=== PATIENT | male | born 1955 | race Caucasian/White ===

== ENCOUNTER 2016-10-11 09:36 | Observation (INO) | payer OTHER ==
[2016-10-11] MEDS ORDERED: MORPHINE SULFATE 4 MG/ML SYRINGE IVP STA ×2 (09:56→13:50)
[2016-10-11] MEDS ORDERED: RX INFO: IV CONTRAST WAS GIVEN 1 EACH MISC MISCELLANE PRN (09:56)
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
[2016-10-11 10:26] LABS: Basophils % (A) 0 %; Eosinophils # (A) 0.1 k/uL (0-0.7); Eosinophils % (A) 2 %; HCT 46.4 % (39.0-53.0); HGB 15.6 gm/dL (13.0-17.5); Luc # (Auto) 0.11; Luc % (Auto) 2; Lymphocytes # (A) 1.7 k/uL (1.0-4.8); Lymphocytes % (A) 29 %; MCH 30.8 pg (25.0-35.0); MCHC 33.5 g/dL (31.0-37.0); MCV 91.9 fL (80.0-100.0); Monocytes # (A) 0.3 k/uL (0-1.0); Monocytes % (A) 4 %; Neutrophils # (A) 3.8 k/uL (1.3-7.7); Neutrophils % (A) 63 %; RBC 5.05 m/uL (4.30-5.90); RDW 13.8 % (11.5-15.5); WBC (Perox) 5.77
[2016-10-11 10:41] LABS: ALT 63 U/L (21-72); AST 34 U/L (17-59); Alkaline Phosphatase 62 U/L (38-126); Anion Gap 13 mmol/L; Blood Urea Nitrogen 13 mg/dL (9-20); Calcium 9.4 mg/dL (8.4-10.2); Carbon Dioxide 24 mmol/L (22-30); Chloride 102 mmol/L (98-107); Glucose 135 mg/dL (74-99); Non-African American GFR(MDRD) >60 (>60 ml/min/1.73 sqM); Sodium 139 mmol/L (137-145); Total Bilirubin 0.8 mg/dL (0.2-1.3); Total Protein 7.2 g/dL (6.3-8.2)
[2016-10-11 10:48] LABS: Creatine Kinase 75 U/L (55-170)
[2016-10-11 10:54] LABS: Potassium 4.4 mmol/L (3.5-5.1)
--- NOTE | 2016-10-11 10:55 | CT ---
EXAMINATION TYPE: CT angio thoracic/abd aorta DATE OF EXAM: 10/11/2016 10:45 AM COMPARISON: NONE HISTORY: SOB, chest pain CT DLP: 1806.8 mGycm CONTRAST: CTA thoracic and abdominal aorta with 3-D reconstruction is performed and without and with IV Contras t, patient injected with 100 mL of Omnipaque 350. Contrast CTA of the thoracic and abdominal aorta was performed from the lung apex through the base of the pelvis. 3-D reconstruction imaging obtained at a separate workstation. CT Chest: THORACIC AORTA: There is no evidence for aneurysm. No dissection or mediastinal hematoma. Mild ath eromatous changes are seen. LUNGS: The lungs are clear and free of infiltrate or atelectasis. No pulmonary nodule or mass is det ected. No pleural effusion or CT evidence of interstitial lung disease. MEDIASTINUM: The heart is not enlarged. No evidence for mediastinal mass or adenopathy. HILAR STRUCTURES: No evidence for mass. No hilar adenopathy is appreciated. OTHER: No significant abnormality. CONTRAST CT ABDOMEN AND PELVIS ABDOMENAL AORTA: No evidence for abdominal aortic aneurysm. No dissection. Iliac vessels are symmet mira and patent. LIVER/GB-small hepatic cyst. PANCREAS- No significant abnormality is seen. SPLEEN- No significant abnormality is seen. ADRENALS- No significant abnormality is seen. KIDNEYS/BLADDER- No significant abnormality is seen. BOWEL- No Significant abnormality GENITAL ORGANS: No gross abnormality seen. LYMPH NODES- No greater than 1cm abdominal or pelvic lymph nodes areappreciated. OSSEOUS STRUCTURES- No significant abnormality is seen. OTHER- No significant abnormality is seen. IMPRESSION- No evidence for aneurysm or dissection. No acute process.
[2016-10-11 11:01] LABS: Creatine Kinase MB 0.5 ng/mL (0.0-2.4); Troponin I <0.012 ng/mL (0.000-0.034)
[2016-10-11] MEDS ORDERED: HEPARIN SODIUM,PORCINE 5,000 UNIT/ML 1 ML VIAL IV ONE (11:05)
[2016-10-11] MEDS ORDERED: ASPIRIN 81 MG CHEW PO STA (11:05)
[2016-10-11] MEDS ORDERED: NITROGLYCERIN SL TABS 0.4 MG TAB SUBLINGUAL PRN (11:05)
[2016-10-11] MEDS ORDERED: HEPARIN SODIUM,PORCINE 5,000 UNIT/ML 1 ML VIAL IV PRN (11:05)
[2016-10-11] MEDS ORDERED: HEPARIN SODIUM,PORCINE/D5W PMX 25,000 UNIT in DEXTROSE/WATER 1 500ML.BAG IV SCH (11:15)
[2016-10-11 11:35] LABS: Partial Thromboplastin Time 24.6 sec (22.0-30.0)
[2016-10-11 16:20] LABS: Creatine Kinase 63 U/L (55-170)
[2016-10-11 16:30] LABS: Creatine Kinase MB 0.4 ng/mL (0.0-2.4); Troponin I <0.012 ng/mL (0.000-0.034)
[2016-10-11] MEDS: MORPHINE SULFATE 4 MG/ML SYRINGE IVP PRN ×2 (18:23→22:31)
--- NOTE | 2016-10-11 20:54 | CONS ---
DATE OF CONSULTATION: This is a 60-year-old male patient who came into the hospital with left scapular pain radiating down the left arm. He bent over and then stood up and had sudden very severe pain that started in the left scapular area and radiated down the left arm, so he was quite concerned and came to the hospital. He still is having lingering discomfort; it is better after giving a treatment of opiates. His cardiac enzymes so far have been normal. There is mild tenderness on the medial aspect of the scapula. His medications only include Motrin, and previously he was taking Ultram. ALLERGIES: HONEYBEE VENOM. PAST MEDICAL HISTORY: He denies any history of diabetes or hypertension or dyslipidemia. SOCIAL HISTORY: He stopped smoking 10 to 15 years back. No alcohol use for the last 30 years. REVIEW OF SYSTEMS: No fever, chills or rigors. No cough or expectoration. No nausea, vomiting or diarrhea. No hematuria or dysuria. No strokes or seizures. No skin lesions. No musculoskeletal complaints. On examination, his blood pressure is 134/91 mmHg. His temperature is 98.1 degrees Fahrenheit, pulse rate in the 80s. Head and neck examination is normal. Heart sounds are normal. Lungs are clear on auscultation. EXTREMITIES: Warm. No edema. He has some tenderness over the medial aspect of the scapula. Labs are reviewed. His hemoglobin is normal. His electrolytes are normal. Cardiac enzymes are normal. IMPRESSION: 1. Atypical upper back discomfort radiating from the shoulder with 2 cardiac enzymes that are normal so far. 2. No history of hypertension, dyslipidemia, diabetes or history of current smoking. SUGGEST: If his 3 set of cardiac enzymes are normal, we will stop his heparin and he may be seen as an outpatient for further workup.
[2016-10-11 22:44] LABS: Creatine Kinase 56 U/L (55-170)
[2016-10-11 22:58] LABS: Creatine Kinase MB 0.6 ng/mL (0.0-2.4); Troponin I <0.012 ng/mL (0.000-0.034)
[2016-10-11 23:54] LABS: Creatine Kinase 59 U/L (55-170); Creatine Kinase MB 0.5 ng/mL (0.0-2.4); Troponin I <0.012 ng/mL (0.000-0.034)
[2016-10-12 02:55] LABS: Mean Platelet Volume 6.9
[2016-10-12 03:10] LABS: Cholesterol 156 mg/dL (<200); HDL Cholesterol 53 mg/dL (40-60); Triglycerides 260 mg/dL (<150)
[2016-10-12] MEDS: MORPHINE SULFATE 4 MG/ML SYRINGE IVP PRN ×2 (04:05→08:59)
[2016-10-12 04:15] VITALS: RESP 16
[2016-10-12] MEDS ORDERED: ASPIRIN 325 MG TAB PO SCH (09:00)
[2016-10-12] MEDS ORDERED: ATORVASTATIN 80 MG TAB PO SCH (09:00)
--- NOTE | 2016-10-12 10:24 | PN ---
Mr. Palacios is a 60-year-old male patient who presented with upper back discomfort. His cardiac enzymes are normal. EKG is normal. He has not had an acute myocardial infarction. His triglycerides are 260, total cholesterol 156. He does have central obesity. On examination today, his blood pressure is 161/92 mmHg and has been consistently elevated here. Head and neck examination is normal. Heart sounds are normal. Lungs are clear on auscultation. Extremities are warm, no edema. IMPRESSION: 1. Elevated blood pressure likely hypertension. 2. Elevated triglycerides. SUGGEST: Losartan 50 mg p.o. daily and a low carbohydrate diet and outpatient workup.
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
[2016-10-12 13:55] VITALS: BP 148/87; PULSE 72; TEMP 98.2
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
== END 2016-10-12 15:27 | disposition home or self-care (01) ==
LOC: EC 09:36 → 3OBS 11:06
PROVIDERS: ADMIT Hospitalist; ATTEND Hospitalist
DX: R07.9 Chest pain, unspecified (principal); M54.5 Low back pain; G89.29 Other chronic pain; E66.9 Obesity, unspecified; Z91.030 Bee allergy status; Z87.891 Personal history of nicotine dependence; Z82.49 Family history of ischemic heart disease and other diseases of the circulatory system; Z82.5 Family history of asthma and other chronic lower respiratory diseases; M54.9 Dorsalgia, unspecified; R61 Generalized hyperhidrosis; R06.02 Shortness of breath; R20.2 Paresthesia of skin; Z82.3 Family history of stroke; R03.0 Elevated blood-pressure reading, without diagnosis of hypertension; E78.1 Pure hyperglyceridemia; Z86.19 Personal history of other infectious and parasitic diseases; Z68.34 Body mass index [BMI] 34.0-34.9, adult
CPT/HCPCS: 96376 ×4; 96366 ×7; 96365; 96375; 99291; 36415; 93005; 85379; 83880; 80061; 80053; 82550; 82553; 83690; 83735; 84484; 85025; 85049; 85610; 85730 ×2; 75635; 71275; G0378 ×2; J2270 ×2; J1644 ×3; Q9967

== ENCOUNTER → 2016-12-15 | Outpatient (CLI) | payer OTHER ==
--- NOTE | 2016-12-15 17:02 | CONS ---
DATE OF CONSULTATION: 12/15/2016 This is a 61-year-old gentleman who has been evaluated in the sleep center for possible obstructive sleep apnea/hypopnea syndrome. HISTORY OF PRESENT ILLNESS/SLEEP-WAKE EVALUATION: The patient's usual sleep schedule is from 11 p.m. to 6 a.m. basically 7 days a week. Sometimes he has problems falling asleep. He watches TV sometimes in the bedroom. He snores, according to his . He wakes up from sleep multiple times; more than 5 times ; with up to 2 episodes of nocturia. He has difficulties breathing through his nose during the night. He wakes up with a dry mouth. During the day he has sleepiness, problems with memory. [place] sleepiness scale increased to 11. He takes naps usually after meals. No history of hypnagogic hallucinations, sleep paralysis or cataplexy. PAST MEDICAL HISTORY: 1. Recent episode of stroke. 2. Chest pain. 3. Shortness of breath. Evaluation in the hospital did not find any significant abnormalities related to the heart. 4. Hypertension. 5. Hyperlipidemia. 6. Nasal breathing problems. PAST SURGICAL HISTORY: 1. Back surgery. 2. Surgery for broken mandibula. 3. Surgery for broken left arm. MEDICATIONS: None. SOCIAL HISTORY: Positive for smoking for more than 40 pack/years. Quit about 8 years ago. No alcohol consumption at the present time. REVIEW OF SYSTEMS: No fevers. No double vision. No recent chest pain. No shortness of breath. No abdominal pain. No bleeding episodes. No blood in urine. No seizure episodes. Multiple awakenings from sleep. Nocturia. Sleepiness during the day. FAMILY HISTORY: Hypertension, heart problems, hyperlipidemia, stroke, cancer. PHYSICAL EXAM: The patient is a pleasant 61-year-old gentleman without distress. VITAL SIGNS: Blood pressure 132/80, heart rate 86, respiratory rate 16. Height 5 feet 10-1/2 inches. Weight 245. BMI 34.6. Neck 17 inches in circumference. Temperature 98.8. Oxygen saturation at room air 96%. GENERAL: A pleasant patient without distress. HEENT: PERRLA. EOMI. Evaluation of oropharynx showed tongue protrudes midline. Extremely low position of soft palate. Mallampati IV. Slight restriction of nasal breathing. NECK: Supple. No JVD. Thyroid is not palpable. LUNGS: Clear to percussion and to auscultation. Good air exchange. No wheezing or rhonchi. HEART: S1, S2 regular. No murmurs, gallops or rubs. ABDOMEN: Obese. EXTREMITIES: No clubbing or cyanosis. GAME MANAGER: Awake, alert and oriented x3. Cranial nerves 2 through 7 are intact. There is no fasciculation or atrophy noted. No focal deficits observed. Middle scar on the chest area after back surgery. IMPRESSION: 1. Snoring, multiple awakenings from sleep with nocturia, extremely low position of soft palate, wide neck; obstructive sleep apnea/hypopnea syndrome. 2. Obesity; body mass index 34.6. 3. Some restriction of nasal breathing. 4. History of smoking for more than 40 pack/years in the past. 5. History of hypertension. 6. Hyperlipidemia. 7. Episode of strong chest pain a few months ago. Patient was evaluated in the hospital for several days. No cardiac problem at that time was documented. PLAN: 1. Polysomnography for evaluation of patients breathing during sleep. 2. CPAP/BiPAP titration if sleep study confirms obstructive sleep apnea/ hypopnea syndrome. 3. Preferable position during sleep on the side. 4. No driving if feeling any sleepiness. Patient is aware of civil and criminal liability for unsafe driving. 5. I will see this patient for follow-up visit to explain results of the testing and follow-up plan. Thank you very much for referring this patient for consultation. Sincerely, Robin Andrews. , PhD, FAASM. Diplomat of [place] [employer], Sleep Medicine Board by [place] [employer] [place] [employer] Training Program Coordinator of [facility]
== END | disposition home or self-care (01) ==
LOC: SLEEP 13:09
PROVIDERS: ATTEND Internal Medicine
DX: G47.33 Obstructive sleep apnea (adult) (pediatric) (principal); E66.9 Obesity, unspecified; I10 Essential (primary) hypertension; E78.5 Hyperlipidemia, unspecified; Z87.891 Personal history of nicotine dependence; Z68.34 Body mass index [BMI] 34.0-34.9, adult
CPT/HCPCS: 99211

== ENCOUNTER → 2017-03-30 | Outpatient (CLI) | payer OTHER ==
--- NOTE | 2017-03-30 16:59 | PN ---
PROGRESS NOTE DATE OF SERVICE: 03/30/2017 61-year-old gentleman has been followed [facility] to discuss results of the sleep study. I discussed results of sleep study with patient in details. No significant respiratory abnormalities have been documented during the sleep test. Apnea-hypopnea index was only 0.6. Only 3 hypopneas documented for the whole night. Lowest oxygen level 91.7%, which is totally normal. At the same time, the EMG showed 48.4 periodic limb movements per hour with 4.1 microarousals per hour and during 2 periods of sleep the patient had very significant amount of leg movements. According to patient, he often wakes up from sleep at home while hearing very minimal noise. MEDICATIONS: None. PHYSICAL EXAM: GENERAL Patient in no distress. VITAL SIGNS Height 5 feet 10 inches, weight 243, BMI 34.8, temperature 97.7, HR 82, RR 16, oxygen saturation room air 98%, BP 145/87. HEENT PERRLA, EOMI, evaluation of oropharynx showed moderately low position of soft palate. NECK Supple, no JVD. Thyroid is not palpable. LUNGS Clear to percussion and to auscultation. Good air exchange. No wheezing or rhonchi. HEART S1, S2 regular. No murmurs, gallops, or rubs. ABDOMEN Slightly obese. Soft and nontender. Bowel sounds are present. No organomegaly appreciated. EXTREMITIES No clubbing or cyanosis. [employer] Awake, alert, and oriented X3. Cranial nerves 2 to 7 intact. There is no fasciculation or atrophy. noted. No focal deficits observed. IMPRESSION: 1. No significant respiratory abnormalities during the sleep. Normal oxygen saturation during sleep. 2. Moderate close to severe periodic limb movements have been documented, in 2 periods of sleep time extremely severe. 3. Obesity. 4. History of hypertension. 5. Hyperlipidemia. 6. Tinnitus. PLAN: 1. Please check iron profile including ferritin level. A low level of iron may increase risk for periodic limb movements. 2. Start the patient on the smallest dose of Mirapex 0.125 mg 1 or 2 tablets at bedtime for periodic limb movements. 3. Ear plugs for the night for the sleep time. 4. Sleep hygiene with regular time in bed for at least 8 hours. 5. No driving if feeling any sleepiness. Thank you very much for allowing me to participate in management of your patient. Sincerely, Robin Andrews MD, PhD, FAASM Diplomat of [employer] [employer] [facility] [place] MMLEONARDO / MADDIE: [phone] /
== END | disposition home or self-care (01) ==
LOC: SLEEP 15:45
PROVIDERS: ATTEND Internal Medicine
DX: G47.61 Periodic limb movement disorder (principal); E78.5 Hyperlipidemia, unspecified; H93.19 Tinnitus, unspecified ear; E66.9 Obesity, unspecified; Z68.34 Body mass index [BMI] 34.0-34.9, adult; Z86.79 Personal history of other diseases of the circulatory system

== ENCOUNTER 2018-08-24 12:06 | Emergency (ER) | payer OTHER ==
[2018-08-24] MEDS ORDERED: SODIUM CHLORIDE 0.9% 1,000 ML IV STA (12:35)
[2018-08-24 13:00] LABS: Basophils % (A) 0 %; Eosinophils # (A) 0.2 k/uL (0-0.7); Eosinophils % (A) 3 %; HCT 45.6 % (39.0-53.0); HGB 15.2 gm/dL (13.0-17.5); Lymphocytes # (A) 2.2 k/uL (1.0-4.8); Lymphocytes % (A) 28 %; MCH 29.8 pg (25.0-35.0); MCHC 33.4 g/dL (31.0-37.0); MCV 89.2 fL (80.0-100.0); Mean Platelet Volume 6.6; Monocytes # (A) 0.4 k/uL (0-1.0); Monocytes % (A) 5 %; Neutrophils # (A) 4.8 k/uL (1.3-7.7); Neutrophils % (A) 62 %; Platelet Count 223 k/uL (150-450); RBC 5.12 m/uL (4.30-5.90); RDW 13.1 % (11.5-15.5); WBC 7.8 k/uL (3.8-10.6)
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
[2018-08-24 13:09] LABS: ALT 57 U/L (21-72); AST 32 U/L (17-59); Albumin 4.6 g/dL (3.5-5.0); Alkaline Phosphatase 59 U/L (38-126); Anion Gap 10 mmol/L; Blood Urea Nitrogen 10 mg/dL (9-20); Calcium 9.5 mg/dL (8.4-10.2); Carbon Dioxide 26 mmol/L (22-30); Chloride 104 mmol/L (98-107); Glucose 88 mg/dL (74-99); Lipase 111 U/L (23-300); Magnesium 2.3 mg/dL (1.6-2.3); Potassium 4.8 mmol/L (3.5-5.1); Sodium 140 mmol/L (137-145); Total Bilirubin 0.8 mg/dL (0.2-1.3); Total Protein 7.3 g/dL (6.3-8.2)
[2018-08-24 13:10] LABS: INR 0.9 (<1.2); Partial Thromboplastin Time 24.5 sec (22.0-30.0); Prothrombin Time 9.7 sec (9.0-12.0)
--- NOTE | 2018-08-24 14:22 | CT ---
EXAMINATION TYPE: CT angio chest DATE OF EXAM: 08/24/2018 COMPARISON: CTA aorta October 11, 2016. HISTORY: Back pain, arm numbness CT DLP: 475.6 mGycm. Automated Exposure Control for Dose Reduction was Utilized. CONTRAST: CTA scan of the thorax is performed without and with IV Contrast, patient injected with 100 ml mL of Isovue 370, pulmonary embolism protocol. MIP Images are created on CT scanner and reviewed. FINDINGS: LUNGS: Some dependent atelectasis right lower lobe is present. Mild emphysematous change in the upper lungs is seen. No suspicious focal consolidation or infiltrate. No suspicious pulmonary masses. No p leural effusion or pneumothorax. Tracheobronchial tree is patent. MEDIASTINUM: There is suboptimal bolus with thecal contrast the right and left heart systems. There is no large central pulmonary embolism. There is however linear right lower lobe segmental thrombus a xial image 80 with subsegmental extension . There are no greater than 1 cm hilar or mediastinal lymph nodes. No cardiomegaly or pericardial effusion is seen. Coronary artery calcifications are redemon strated which is noted marked underlying coronary artery disease. Other: Slight low dense thickening to left adrenal gland favors benign hyperplasia. Fairly moderate m ultilevel anterior and lateral spurring in thoracic spine is redemonstrated. IMPRESSION: New small nonocclusive linear segmental pulmonary embolism right lower lobe with subsegm ental extension. Mild emphysematous change redemonstrated without acute pulmonary process. Results of pulmonary embolism communicated to ordering ER physician via telephone at time of dictatio n
[2018-08-24 14:45] VITALS: RESP 20
[2018-08-24] MEDS ORDERED: MORPHINE SULFATE 4 MG/ML SYRINGE IVP STA (14:46)
[2018-08-24] MEDS ORDERED: APIXABAN 5 MG TAB PO STA (14:46)
--- NOTE | 2018-08-24 15:56 | US ---
EXAMINATION TYPE: US venous doppler duplex LE DATE OF EXAM: 08/24/2018 2:47 PM COMPARISON: NONE CLINICAL HISTORY: Pain. known PE. SIDE PERFORMED: Bilateral TECHNIQUE: The lower extremity deep venous system is examined utilizing real time linear array sonog morales with graded compression, doppler sonography and color-flow sonography. VESSELS IMAGED: External Iliac Vein (EIV) Common Femoral Vein Deep Femoral Vein Greater Saphenous Vein * Femoral Vein Popliteal Vein Small Saphenous Vein * Proximal Calf Veins (* superficial vessels) Grayscale, color doppler, spectral doppler imaging performed of the deep veins of the lower extremiti es. There is normal flow, compressibility, vascular waveforms. Right Leg: Negative for DVT Left Leg: Negative for DVT IMPRESSION: No sonographic evidence of deep venous thrombosis within the bilateral lower extremities .
[2018-08-24 16:36] VITALS: BP 153/86; PULSE 76; TEMP 98
== END 2018-08-24 16:37 | disposition home or self-care (01) ==
LOC: EC 12:06
DX: I26.99 Other pulmonary embolism without acute cor pulmonale (principal); M54.9 Dorsalgia, unspecified; R20.0 Anesthesia of skin; Z87.891 Personal history of nicotine dependence; Z79.899 Other long term (current) drug therapy; Z91.030 Bee allergy status
CPT/HCPCS: 36415; 93005; 83880; 80053; 83690; 83735; 84484; 85025; 85610; 85730; 93970; 71275; 99284; 96374; 96361 ×2; J2270; Q9967

== ENCOUNTER → 2018-09-10 | Outpatient (CLI) | payer OTHER ==
--- NOTE | 2018-09-10 18:09 | US ---
EXAMINATION TYPE: US soft tissue DATE OF EXAM: 09/10/2018 COMPARISON: NONE CLINICAL HISTORY: 62-year-old male R59.0 cervical lymphadenopathy. TECHNIQUE: Targeted ultrasound along the lateral left neck at the palpable site. FINDINGS: Supervisor [employer] notes:Patient has superficial lump in left lateral neck, he states it has been there for about 6 months and is not painful or sensitive. At the patient's lateral left neck palpable site is an echogenic, ovoid and circumscribed mass locate d in the subcutaneous adipose layer measuring 1.3 x 0.6 x 1.4 cm. There is no associated vascularity. IMPRESSION: Ovoid and circumscribed echogenic lesion centered in the subcutaneous adipose layer measuring 1.4 x 1 .3 cm at the palpable site along the lateral left neck. A lipoma is suspected. If there is growth or the area is symptomatic, surgical excision could be considered.
== END ==
LOC: RADUSWWP 13:16
PROVIDERS: ATTEND Family Medicine
DX: L98.8 Other specified disorders of the skin and subcutaneous tissue (principal)
CPT/HCPCS: 76536

== ENCOUNTER → 2018-09-24 | Outpatient (CLI) | payer OTHER ==
--- NOTE | 2018-09-24 09:12 | CT ---
EXAMINATION TYPE: CT sinus wo con DATE OF EXAM: 09/24/2018 COMPARISON: NONE HISTORY: Acute sinusitis CT DLP: 622 mGycm. Automated Exposure Control for Dose Reduction was Utilized. TECHNIQUE: CT scan of the sinuses is performed without contrast, axial images are obtained, coronal r eformatted images are also reviewed. FINDINGS: Large mucosal retention cyst within the anterior left maxillary sinus at its inferior rigo n measures up to 2.3 cm. Mucosal retention cyst within the inferior right maxillary sinus measure 1.4 and 1.3 cm. Small amount of mucosal thickening is seen within the ethmoid sinuses. There is mucosal thickening at the right frontal recess. Remainder of the frontal sinuses and sphenoid sinuses are wel l aerated as are the mastoid air cells. No middle ear cavity fluid is seen. Small amount of cerumen i s present within the left external auditory canal. The ostiomeatal complexes are patent. There is a 5 mm nonocclusive left Ana cell. No contra bullosa. Very mild rightward nasal septal deviation is s een. No nasal turbinate mucosal hypertrophy. Osseous structures appear intact. Dermal calcifications in the frontal scalp are typically incidental and benign. Globes are symmetric. Lenses are in place. Evaluation of the visualized portions of the brain is suboptimal given techniqu e. Atherosclerosis is seen of the intracranial vasculature. IMPRESSION: 1. Mucosal retention cysts within the maxillary sinuses measuring 2.3 cm, 1.4 cm and 1.3 cm. 2. Small amount of mucosal thickening in the right frontal recess. Ostia medial complexes are patent. 3. Mild mucosal thickening of the ethmoid sinuses. 4. Minimal rightward nasal septal deviation. 5. Nonocclusive small 5 mm left Ana cell.
== END ==
LOC: RADCTMAIN 08:19
PROVIDERS: ATTEND Family Medicine
DX: J34.1 Cyst and mucocele of nose and nasal sinus (principal); J34.9 Unspecified disorder of nose and nasal sinuses; J34.2 Deviated nasal septum
CPT/HCPCS: 70486

== ENCOUNTER → 2019-03-05 | Outpatient (CLI) | payer OTHER ==
[2019-03-05 12:12] LABS: INR 0.9 (<1.2); Partial Thromboplastin Time 27.2 sec (22.0-30.0); Prothrombin Time 9.6 sec (9.0-12.0)
[2019-03-05 17:53] LABS: Cardiolipin Ab IgG Interp NEGATIVE (NEGATIVE); Cardiolipin Ab IgM Interp NEGATIVE (NEGATIVE); Cardiolipin IgA Antibody 1.8 U/mL; Cardiolipin IgM Antibody 2.7 U/mL
[2019-03-06 13:21] LABS: APTT 43 Sec(s) (<43); DRVVT 1:1 Mix 53 Sec(s) (<44); DRVVT Confirmation Positive (Negative); Dilute Russell Viper Venom 71 Sec(s) (<44)
[2019-03-06 13:22] LABS: Anti-Thrombin III Antigen 96 % (80 - 120)
== END | disposition home or self-care (01) ==
LOC: LABWHC1 10:10
PROVIDERS: ATTEND Family Medicine
DX: D68.69 Other thrombophilia (principal)
CPT/HCPCS: 36415; 82784; 82785; 83090; 85301; 85303; 85306; 85610; 85613; 85730; 86147

== ENCOUNTER → 2019-08-07 | Outpatient (CLI) | payer OTHER ==
--- NOTE | 2019-08-07 10:28 | CT ---
EXAMINATION TYPE: CT angio chest DATE OF EXAM: 08/07/2019 10:15 AM COMPARISON: 08/24/2018 HISTORY: follow up pulmonary embolism CT DLP: 478.5 mGycm Automated exposure control for dose reduction was used. CONTRAST: CTA scan of the thorax is performed with IV Contrast, patient injected with 100 mL of Isovue 370, pul monary embolism protocol. . FINDINGS: LUNGS: There is paraseptal emphysematous changes involving the lung apices. Mild diffuse changes of C OPD. Groundglass changes most likely in the basis of atelectasis. Correlate clinically. No evidence o f pneumothorax. No pleural effusion. MEDIASTINUM: There is persistent linear density within the right lower lobe subsegmental arterial bra nch unchanged from prior exam. Main pulmonary arteries demonstrate normal enhancement. There are no g reater than 1 cm hilar or mediastinal lymph nodes. No pericardial effusion is seen. OTHER: Hypertrophic and degenerative change spine. Thickening of the left adrenal gland which may re present adrenal dysplasia tiny adenoma stable. Stable appearing tiny hypodensity within the dome of t he liver too small to characterize statistically most likely related to a cyst. Small hiatal hernia. IMPRESSION: LINEAR AREA OF ABNORMAL DENSITY WITHIN THE RIGHT LOWER LOBE PULMONARY ARTERIAL BRANCH PREVIOUSLY DESC RIBED A POSSIBLE SMALL SEGMENTAL PULMONARY EMBOLISM IS STABLE AND UNCHANGED FROM PRIOR EXAM.
== END | disposition home or self-care (01) ==
LOC: RADCTMAIN 09:48
PROVIDERS: ATTEND Internal Medicine Hematology & Oncology
DX: I26.99 Other pulmonary embolism without acute cor pulmonale (principal)
CPT/HCPCS: 71275; Q9967

== ENCOUNTER → 2020-04-01 | Outpatient (CLI) | payer OTHER ==
--- NOTE | 2020-04-01 09:43 | CT ---
EXAMINATION TYPE: CT angio chest DATE OF EXAM: 04/01/2020 8:37 AM COMPARISON: CTA chest August 07, 2019 and older study August 24, 2018 HISTORY: Follow up to PE CT DLP: 429.8 mGycm Automated exposure control for dose reduction was used. CONTRAST: CTA scan of the thorax is performed with IV Contrast, patient injected with 100 mL of Isovue 370, pul monary embolism protocol. . FINDINGS: LUNGS: The lungs remaining grossly clear, there is no concerning new parenchymal mass or nodule ident ified. There is no pleural effusion or pneumothorax seen. The tracheobronchial tree is patent. MEDIASTINUM: There is suboptimal study with most dense contrast in the SVC and nearly equal contrast in the right and left heart systems. No new pulmonary embolism is evident. Stable linear density in the right lower lobe segmental branch axial image 78 could reflect chronic small embolism or web. The re are no new greater than 1 cm hilar or mediastinal lymph nodes. No cardiomegaly or pericardial ef fusion is seen. Coronary artery calcification is redemonstrated. OTHER: Smaller degree of subareolar gynecomastia. Roughly 1.5 cm cm low dense lesion left hepatic lo be axial image 121 favors thin-walled cyst is stable low dense thickening to both adrenal glands cons istent with benign lipid rich hyperplasia. Mild multilevel spurring in the spine. IMPRESSION: Suboptimal study without new acute pulmonary embolism. Stable linear density right lower lobe segmental branch could reflect chronic linear embolism or web.
== END | disposition home or self-care (01) ==
LOC: RADCTMAIN 07:57
PROVIDERS: ATTEND Internal Medicine Hematology & Oncology
DX: J98.4 Other disorders of lung (principal)
CPT/HCPCS: 71275; Q9967

== ENCOUNTER 2021-01-14 21:55 | Emergency (ER) | payer OTHER ==
[2021-01-14] MEDS ORDERED: SODIUM CHLORIDE 0.9% 1,000 ML IV STA ×2 (23:16)
[2021-01-14] MEDS ORDERED: ALBUTEROL HFA INHALER INHALATION PRN (23:16)
[2021-01-14] MEDS ORDERED: SODIUM CHLORIDE 0.9% 500 ML 500 ML IV STA (23:16)
[2021-01-14] MEDS ORDERED: ACETAMINOPHEN TAB 500 MG TAB PO STA (23:16)
[2021-01-14] MEDS ORDERED: KETOROLAC 15 MG/ML 1 ML VIAL IVP STA (23:16)
[2021-01-14] MEDS ORDERED: DEXAMETHASONE SOD PHOSPHATE 10 MG/ML 1 ML VIAL IV STA (23:16)
[2021-01-14] MEDS ORDERED: ALBUTEROL HFA INHALER INHALATION STA (23:16)
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
[2021-01-15 00:11] LABS: Basophils % (A) 1 %; Eosinophils % (A) 0 %; HCT 47.3 % (39.0-53.0); HGB 15.5 gm/dL (13.0-17.5); Lymphocytes % (A) 16 %; MCH 31.3 pg (25.0-35.0); MCHC 32.9 g/dL (31.0-37.0); MCV 95.4 fL (80.0-100.0); Mean Platelet Volume 7.7; Monocytes # (A) 0.1 k/uL (0-1.0); Monocytes % (A) 2 %; Neutrophils # (A) 5.1 k/uL (1.3-7.7); Neutrophils % (A) 81 %; Platelet Count 143 k/uL (150-450); RBC 4.96 m/uL (4.30-5.90); RDW 13.9 % (11.5-15.5); WBC 6.3 k/uL (3.8-10.6)
[2021-01-15 00:18] LABS: ALT 43 U/L (4-49); AST 51 U/L (17-59); African American GFR (CKD) >90 (>60 ml/min/1.73 sqM); Albumin 4.3 g/dL (3.5-5.0); Alkaline Phosphatase 43 U/L (38-126); Anion Gap 10 mmol/L; Blood Urea Nitrogen 20 mg/dL (9-20); C Reactive Protein 4.8 mg/dL (<1.0); Calcium 8.6 mg/dL (8.4-10.2); Carbon Dioxide 24 mmol/L (22-30); Chloride 96 mmol/L (98-107); Glucose 118 mg/dL (74-99); LDH 576 U/L (313-618); Magnesium 1.9 mg/dL (1.6-2.3); Non-African American GFR(CKD) 79 (>60 ml/min/1.73 sqM); Potassium 3.8 mmol/L (3.5-5.1); Sodium 130 mmol/L (137-145); Total Bilirubin 0.5 mg/dL (0.2-1.3); Total Protein 6.6 g/dL (6.3-8.2)
[2021-01-15 00:26] LABS: INR 0.9 (<1.2); Partial Thromboplastin Time 29.6 sec (22.0-30.0); Prothrombin Time 10.1 sec (9.0-12.0)
--- NOTE | 2021-01-15 00:45 | XR ---
EXAMINATION TYPE: XR chest 1V portable DATE OF EXAM: 01/15/2021 COMPARISON: 09/24/2014 HISTORY: Pneumonia. Chest pain TECHNIQUE: Single view FINDINGS: There are some linear infiltrate and atelectasis right midlung. Heart size is fairly normal . There are no hilar masses. Thoracic aorta is atheromatous. There is no pleural effusion. Bony thora x is intact. IMPRESSION: There is some linear infiltrate and atelectasis right midlung field that is new compared to old exam. No heart failure.
[2021-01-15 01:38] VITALS: TEMP 99
[2021-01-15] MEDS ORDERED: SODIUM CHLORIDE 0.9% 50 ML IVPB ONE (02:00)
[2021-01-15] MEDS ORDERED: CASIRIVIMAB (REGN10933) (EUA) 600 MG, IMDEVIMAB (REGN10987) (EUA) 600 MG in SODIUM CHLO... IVPB ONE (02:15)
[2021-01-15 03:50] VITALS: BP 107/61; PULSE 71; RESP 16
== END 2021-01-15 03:40 | disposition home or self-care (01) ==
LOC: EC 21:55
DX: U07.1 COVID-19 (principal); I10 Essential (primary) hypertension; E78.5 Hyperlipidemia, unspecified; Z91.030 Bee allergy status; Z79.01 Long term (current) use of anticoagulants; Z90.89 Acquired absence of other organs; Z86.711 Personal history of pulmonary embolism; Z79.899 Other long term (current) drug therapy
CPT/HCPCS: 99284; 96365; 96375 ×2; 96361 ×3; 36415; 93005; 85379; 83880; 80053; 83605; 83615; 83735; 84484; 85025; 85610; 85730; 86140; 87040; 71045; J1100; J1885; Q0243

== ENCOUNTER 2021-01-15 18:41 | Emergency (ER) | payer OTHER ==
[2021-01-15] MEDS ORDERED: ACETAMINOPHEN TAB 325 MG TAB PO STA (20:01)
[2021-01-15] MEDS ORDERED: IBUPROFEN 600 MG TAB PO STA (20:01)
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
--- NOTE | 2021-01-15 20:45 | XR ---
EXAMINATION TYPE: XR chest 1V portable DATE OF EXAM: 01/15/2021 COMPARISON: Today HISTORY: Pneumonia TECHNIQUE: Single view FINDINGS: There is coarse interstitial infiltrate in the mid and lower lung hanson. Heart size is nor mal. I see no definite pleural effusion. IMPRESSION: Increasing bilateral diffuse interstitial pneumonia compared to recent exam. No definite heart failure.
[2021-01-15 21:22] VITALS: BP 118/67; PULSE 92; RESP 16; TEMP 99.8
== END 2021-01-15 21:21 | disposition home or self-care (01) ==
LOC: EC 18:41
DX: U07.1 COVID-19 (principal); I10 Essential (primary) hypertension; E78.5 Hyperlipidemia, unspecified; Z79.01 Long term (current) use of anticoagulants; Z79.1 Long term (current) use of non-steroidal anti-inflammatories (NSAID); Z79.899 Other long term (current) drug therapy; Z86.711 Personal history of pulmonary embolism; Z82.49 Family history of ischemic heart disease and other diseases of the circulatory system
CPT/HCPCS: 71045; 99284

== ENCOUNTER 2021-01-20 12:19 | Inpatient (IN) | payer OTHER ==
[2021-01-20] MEDS ORDERED: SODIUM CHLORIDE 0.9% 1,000 ML IV ONE (13:04)
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
[2021-01-20 13:27] LABS: Basophils # (A) 0.1 k/uL (0-0.2); Basophils % (A) 0 %; Eosinophils % (A) 0 %; HCT 47.9 % (39.0-53.0); HGB 16.1 gm/dL (13.0-17.5); Lymphocytes # (A) 0.9 k/uL (1.0-4.8); Lymphocytes % (A) 5 %; MCH 31.3 pg (25.0-35.0); MCHC 33.7 g/dL (31.0-37.0); MCV 92.9 fL (80.0-100.0); Mean Platelet Volume 7.3; Monocytes # (A) 0.8 k/uL (0-1.0); Monocytes % (A) 4 %; Neutrophils % (A) 90 %; RBC 5.16 m/uL (4.30-5.90); RDW 13.7 % (11.5-15.5); WBC 18.9 k/uL (3.8-10.6)
[2021-01-20 13:39] LABS: ALT 97 U/L (4-49); AST 59 U/L (17-59); African American GFR (CKD) >90 (>60 ml/min/1.73 sqM); Albumin 3.9 g/dL (3.5-5.0); Alkaline Phosphatase 56 U/L (38-126); Anion Gap 12 mmol/L; Blood Urea Nitrogen 22 mg/dL (9-20); C Reactive Protein 1.1 mg/dL (<1.0); Calcium 9.5 mg/dL (8.4-10.2); Carbon Dioxide 22 mmol/L (22-30); Chloride 95 mmol/L (98-107); Glucose 113 mg/dL (74-99); Non-African American GFR(CKD) >90 (>60 ml/min/1.73 sqM); Potassium 4.8 mmol/L (3.5-5.1); Sodium 129 mmol/L (137-145); Total Bilirubin 0.6 mg/dL (0.2-1.3); Total Protein 6.6 g/dL (6.3-8.2)
[2021-01-20 14:11] LABS: Platelet Count 298 k/uL (150-450)
--- NOTE | 2021-01-20 14:29 | CT ---
EXAMINATION TYPE: CT chest angio for PE DATE OF EXAM: 01/20/2021 COMPARISON: 04/01/2020 HISTORY: 65-year-old male Hypoxia, history of PE TECHNIQUE: Contiguous axial scanning of the chest performed with IV Contrast, patient injected with 1 00 mL of Isovue 370. Coronal/sagittal MIP reconstructions performed. CT DLP: 479.9 mGycm Automated exposure control for dose reduction was used. FINDINGS: Heart is upper limits of normal in size without pericardial effusion. No flattening of the interventr icular septum or reflux of contrast into the hepatic veins. Borderline ectasia aortic root at 3.6 cm and ascending aorta 3.5 cm. Mild atherosclerotic arch calcif ications with bovine configuration to the aortic arch. Borderline enlarged caliber to the main right and left pulmonary arteries measuring up to 2.6 cm, may reflect underlying pulmonary hypertension. There is satisfactory opacification of the pulmonary arterial system but with breathing motion artifa ct limiting the exam. No large central lobar branch pulmonary embolus. No embolus seen in the upper o r mid lungs. Segmental and more distal arterial branches of the lower lungs are limited and emboli in these locations cannot be adequately excluded on the basis of this exam. Scattered nonenlarged mediastinal lymph nodes. No thoracic lymphadenopathy by CT size criteria. Moderate centrilobular emphysema. There is patchy and confluent peripheral and peribronchial vascular groundglass changes bilaterally throughout both lungs. No yohannes airspace consolidation or pleural ef fusion. Tiny hiatal hernia. Stable 9 mm hypodensity left liver lobe compatible with a cyst. Otherwise, visua lized upper abdomen shows no gross inability. Bones: [facility] within the mid to lower thoracic spine. IMPRESSION: 1. BREATHING MOTION ARTIFACT. MANY OF THE SEGMENTAL AND MORE DISTAL ARTERIAL BRANCHES OF THE LOWER CHENCHO NGS ARE NONDIAGNOSTIC AND EMBOLI IN THESE LOCATIONS CANNOT BE EXCLUDED ON THE BASIS OF THIS EXAM. NO EMBOLUS SEEN IN THE UPPER OR MID LUNGS OR WITHIN THE LARGE CENTRAL OR LOBAR BRANCHES. 2. COPD WITH MODERATE EMPHYSEMA. HOWEVER, THERE IS NEW PATCHY AND CONFLUENT GROUNDGLASS IN A PERIPHER AL AND PERIBRONCHOVASCULAR DISTRIBUTION. CORRELATE FOR POSSIBLE COVID PNEUMONIA VERSUS OTHER INFLAMMA TORY ETIOLOGIES SUCH NSIP OR HYPERSENSITIVITY PNEUMONITIS.
[2021-01-20] MEDS ORDERED: dexAMETHasone 2 MG TAB PO STA (14:53)
[2021-01-20] MEDS ORDERED: NALOXONE 0.4 MG/ML 1 ML VIAL IV PRN (15:00)
[2021-01-20] MEDS ORDERED: SODIUM CHLORIDE 0.9% 1,000 ML IV SCH (15:00)
[2021-01-20] MEDS ORDERED: ALBUTEROL NEBULIZED 2.5 MG/3 ML INHALATION PRN (15:29)
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
[2021-01-20] MEDS: ACETAMINOPHEN TAB 325 MG TAB PO PRN (19:07)
[2021-01-20] MEDS: APIXABAN 5 MG TAB PO SCH (19:53)
[2021-01-20] MEDS: FAMOTIDINE 20 MG TAB PO SCH (19:53)
[2021-01-20] MEDS: MORPHINE SULFATE 2 MG/ML SYRINGE IVP PRN (23:03)
[2021-01-20 23:12] LABS: INR 0.9 (<1.2); Prothrombin Time 9.8 sec (9.0-12.0)
[2021-01-20 23:41] LABS: ALT 90 U/L (4-49); AST 45 U/L (17-59); African American GFR (CKD) >90 (>60 ml/min/1.73 sqM); Albumin 3.5 g/dL (3.5-5.0); Albumin/Globulin Ratio 1.4; Alkaline Phosphatase 50 U/L (38-126); Anion Gap 9 mmol/L; Basophils # (A) 0.1 k/uL (0-0.2); Basophils % (A) 0 %; Blood Urea Nitrogen 20 mg/dL (9-20); Carbon Dioxide 20 mmol/L (22-30); Chloride 100 mmol/L (98-107); Creatine Kinase 85 U/L (55-170); Eosinophils % (A) 0 %; Globulin 2.5 g/dL; Glucose 149 mg/dL (74-99); HCT 44.5 % (39.0-53.0); HGB 14.9 gm/dL (13.0-17.5); LDH 623 U/L (313-618); Lymphocytes # (A) 1.2 k/uL (1.0-4.8); Lymphocytes % (A) 6 %; MCH 30.8 pg (25.0-35.0); MCHC 33.5 g/dL (31.0-37.0); Mean Platelet Volume 7.2; Monocytes # (A) 0.7 k/uL (0-1.0); Monocytes % (A) 4 %; Neutrophils # (A) 16.9 k/uL (1.3-7.7); Neutrophils % (A) 89 %; Non-African American GFR(CKD) >90 (>60 ml/min/1.73 sqM); Platelet Count 297 k/uL (150-450); Potassium 4.7 mmol/L (3.5-5.1); RBC 4.84 m/uL (4.30-5.90); RDW 13.1 % (11.5-15.5); Sodium 129 mmol/L (137-145); Total Bilirubin 0.5 mg/dL (0.2-1.3)
[2021-01-21] MEDS: MORPHINE SULFATE 2 MG/ML SYRINGE IVP PRN ×3 (04:49→22:10)
[2021-01-21 08:41] LABS: Basophils # (A) 0.1 k/uL (0-0.2); Basophils % (A) 0 %; Eosinophils % (A) 0 %; HGB 15.1 gm/dL (13.0-17.5); Lymphocytes # (A) 1.4 k/uL (1.0-4.8); Lymphocytes % (A) 6 %; MCH 31.4 pg (25.0-35.0); MCHC 34.3 g/dL (31.0-37.0); MCV 91.6 fL (80.0-100.0); Mean Platelet Volume 7.1; Monocytes # (A) 0.8 k/uL (0-1.0); Monocytes % (A) 4 %; Neutrophils # (A) 19.6 k/uL (1.3-7.7); Neutrophils % (A) 89 %; Platelet Count 306 k/uL (150-450); RDW 13.1 % (11.5-15.5)
[2021-01-21] MEDS ORDERED: ENOXAPARIN 40 MG/0.4 ML SYRINGE SQ SCH (09:00)
[2021-01-21] MEDS: ATORVASTATIN 20 MG TAB PO SCH (09:25)
[2021-01-21] MEDS: CHOLECALCIFEROL 25 MCG (1000 IU) TABLET PO SCH (09:25)
[2021-01-21] MEDS: dexAMETHasone 2 MG TAB PO SCH (09:25)
[2021-01-21] MEDS: FAMOTIDINE 20 MG TAB PO SCH ×2 (09:26→22:06)
[2021-01-21] MEDS: APIXABAN 5 MG TAB PO SCH ×2 (09:26→22:06)
[2021-01-21] MEDS: ALBUTEROL HFA INHALER INHALATION PRN ×3 (09:38→16:12)
[2021-01-21 10:34] LABS: ALT 83 U/L (4-49); AST 39 U/L (17-59); African American GFR (CKD) >90 (>60 ml/min/1.73 sqM); Albumin 3.5 g/dL (3.5-5.0); Albumin/Globulin Ratio 1.4; Alkaline Phosphatase 49 U/L (38-126); Anion Gap 8 mmol/L; Blood Urea Nitrogen 17 mg/dL (9-20); Calcium 8.8 mg/dL (8.4-10.2); Carbon Dioxide 24 mmol/L (22-30); Chloride 101 mmol/L (98-107); Globulin 2.5 g/dL; Glucose 101 mg/dL (74-99); Non-African American GFR(CKD) >90 (>60 ml/min/1.73 sqM); Potassium 4.5 mmol/L (3.5-5.1); Sodium 133 mmol/L (137-145); Total Bilirubin 0.6 mg/dL (0.2-1.3)
[2021-01-21] MEDS: ACETAMINOPHEN TAB 325 MG TAB PO PRN (11:57)
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
--- NOTE | 2021-01-21 14:04 | P.PN ---
Subjective Progress Note Date: 01/21/21 No new complaints. Pt reports modest improvement since yesterday. Still requiring 3L NC. Objective - Vital Signs Vital signs: Vital Signs Temp 97.5 F L 01/21/21 04:42 Pulse 56 L 01/21/21 04:42 Resp 18 01/21/21 04:42 BP 133/71 01/21/21 04:42 Pulse Ox 92 L 01/21/21 09:38 Intake & Output 01/20/21 01/21/21 01/21/21 18:59 06:59 18:59 Output Total 1700 900 Balance -1700 -900 Weight 99.79 kg Output: Urine 1700 900 Other: Voiding Method Urinal # Voids 1 - Exam Gen: awake, alert HEENT: normocephalic, atraumatic, good hearing acuity, moist mucous membranes Resp: good air exchange, breathing comfortably with no accessory muscle use, diffuse coarse breath sounds, crackles CVS: good distal perfusion x 4, regular rate and rhythm without murmurs GI: soft, NTTP, ND : no SPT, no CVAT, vu catheter not present MSK: no pitting edema, no clubbing Neuro: non-focal, moving all extremities Psych: cooperative, euthymic mood - Labs CBC & Chem 7: 01/21/21 07:32 01/21/21 07:32 Labs: Abnormal Lab Results - Last 24 Hours (Table) 01/20/21 01/20/21 01/20/21 Range/Units 13:08 22:10 22:10 WBC 18.9 H 19.0 H (3.8-10.6) k/uL Neutrophils # 17.0 H 16.9 H (1.3-7.7) k/uL Lymphocytes # 0.9 L (1.0-4.8) k/uL Sodium 129 L (137-145) mmol/L Carbon Dioxide 20 L (22-30) mmol/L Glucose 149 H (74-99) mg/dL ALT 90 H (4-49) U/L Lactate Dehydrogenase 623 H (313-618) U/L C-Reactive Protein 1.0 H (<1.0) mg/dL Total Protein 6.0 L (6.3-8.2) g/dL 01/21/21 01/21/21 Range/Units 07:32 07:32 WBC 22.0 H (3.8-10.6) k/uL Neutrophils # 19.6 H (1.3-7.7) k/uL Lymphocytes # (1.0-4.8) k/uL Sodium 133 L (137-145) mmol/L Carbon Dioxide (22-30) mmol/L Glucose 101 H (74-99) mg/dL ALT 83 H (4-49) U/L Lactate Dehydrogenase (313-618) U/L C-Reactive Protein (<1.0) mg/dL Total Protein 6.0 L (6.3-8.2) g/dL Assessment and Plan Assessment: Acute hypoxemic respiratory failure ARDS secondary to Covid 19 -Admit inpatient, telemetry -Oxygen when necessary -Inhalers when necessary -Dexamethasone -Vitamin C, D, zinc, famotidine -Pulmonary consult -Daily inflammatory labs Hypertension Hyperlipidemia History of pulmonary embolism -Home medications reviewed and reconciled Patient is a full code DVT prophylaxis is covered with patient's home Eliquis is next of kin
[2021-01-21 14:51] VITALS: BMI 30.7
[2021-01-21] MEDS: LISINOPRIL-HCTZ 20-12.5 MG 1 EACH TAB PO SCH (15:03)
[2021-01-21 15:56] LABS: Ferritin 1530.4 ng/mL (22.0-322.0)
[2021-01-22] MEDS: MORPHINE SULFATE 2 MG/ML SYRINGE IVP PRN (04:12)
[2021-01-22] MEDS: ALBUTEROL HFA INHALER INHALATION PRN ×4 (04:59→19:17)
[2021-01-22 07:29] LABS: ALT 79 U/L (4-49); AST 35 U/L (17-59); African American GFR (CKD) >90 (>60 ml/min/1.73 sqM); Albumin 3.6 g/dL (3.5-5.0); Albumin/Globulin Ratio 1.6; Alkaline Phosphatase 51 U/L (38-126); Anion Gap 10 mmol/L; Blood Urea Nitrogen 19 mg/dL (9-20); Calcium 8.9 mg/dL (8.4-10.2); Carbon Dioxide 24 mmol/L (22-30); Chloride 98 mmol/L (98-107); Globulin 2.3 g/dL; Glucose 97 mg/dL (74-99); LDH 607 U/L (313-618); Non-African American GFR(CKD) >90 (>60 ml/min/1.73 sqM); Potassium 4.3 mmol/L (3.5-5.1); Sodium 132 mmol/L (137-145); Total Protein 5.9 g/dL (6.3-8.2)
[2021-01-22 07:55] LABS: C Reactive Protein 1.8 mg/dL (<1.0)
[2021-01-22 07:56] LABS: Basophils # (A) 0.1 k/uL (0-0.2); Basophils % (A) 0 %; Eosinophils # (A) 0.1 k/uL (0-0.7); Eosinophils % (A) 0 %; HGB 15.2 gm/dL (13.0-17.5); Lymphocytes # (A) 1.3 k/uL (1.0-4.8); Lymphocytes % (A) 5 %; MCH 31.7 pg (25.0-35.0); MCHC 33.7 g/dL (31.0-37.0); MCV 94.1 fL (80.0-100.0); Mean Platelet Volume 7.9; Monocytes # (A) 0.7 k/uL (0-1.0); Monocytes % (A) 3 %; Neutrophils # (A) 23.3 k/uL (1.3-7.7); Neutrophils % (A) 91 %; Platelet Count 335 k/uL (150-450); RBC 4.78 m/uL (4.30-5.90); RDW 13.3 % (11.5-15.5); WBC 25.5 k/uL (3.8-10.6)
--- NOTE | 2021-01-22 08:20 | XR ---
EXAMINATION TYPE: XR chest 1V portable DATE OF EXAM: 01/22/2021 COMPARISON: 01/15/2021 HISTORY: Cough TECHNIQUE: Single frontal view of the chest is obtained. FINDINGS: Diffuse interstitial pattern similar to the prior exam with subsegmental basilar infiltrat es. No pleural effusion or pneumothorax. Heart size normal. Atherosclerotic change aorta. IMPRESSION: Stable interstitial infiltrates
[2021-01-22] MEDS: ACETAMINOPHEN TAB 325 MG TAB PO PRN ×3 (09:48→20:05)
[2021-01-22] MEDS: CHOLECALCIFEROL 25 MCG (1000 IU) TABLET PO SCH (09:49)
[2021-01-22] MEDS: FAMOTIDINE 20 MG TAB PO SCH ×2 (09:49→20:06)
[2021-01-22] MEDS: dexAMETHasone 2 MG TAB PO SCH (09:49)
[2021-01-22] MEDS: ATORVASTATIN 20 MG TAB PO SCH (09:49)
[2021-01-22] MEDS: APIXABAN 5 MG TAB PO SCH ×2 (09:49→20:06)
--- NOTE | 2021-01-22 13:32 | P.PN ---
Subjective Principal diagnosis: Pt sitting in chair resting comfortably. Has been complaining of back pain and headache which are treated with PRN pain medications. Rec'd morphine overnight and had slight bump in O2 requirement from 4L to 3L, which was again returned to 3L NC today after patient woke up more. Encouraged IS. Encouraged time out of bed. Objective - Vital Signs Vital signs: Vital Signs Temp 97.6 F 01/22/21 10:00 Pulse 77 01/22/21 10:00 Resp 20 01/22/21 12:05 BP 119/77 01/22/21 10:00 Pulse Ox 94 L 01/22/21 10:00 Intake & Output 01/21/21 01/22/21 01/22/21 18:59 06:59 18:59 Intake Total 236 Balance 236 Weight 99.79 kg Intake: Oral 236 Other: Voiding Method Urinal # Voids 2 - Exam Gen: awake, alert HEENT: normocephalic, atraumatic, good hearing acuity, moist mucous membranes Resp: good air exchange, breathing comfortably with no accessory muscle use, diffuse coarse breath sounds, crackles CVS: good distal perfusion x 4, regular rate and rhythm without murmurs GI: soft, NTTP, ND : no SPT, no CVAT, vu catheter not present MSK: no pitting edema, no clubbing Neuro: non-focal, moving all extremities Psych: cooperative, euthymic mood - Labs CBC & Chem 7: 01/22/21 Unknown 01/22/21 Unknown Labs: Abnormal Lab Results - Last 24 Hours (Table) 01/20/21 01/22/21 01/22/21 Range/Units 22:10 Unknown Unknown WBC 25.5 H (3.8-10.6) k/uL Neutrophils # 23.3 H (1.3-7.7) k/uL Sodium 132 L (137-145) mmol/L Ferritin 1530.4 H (22.0-322.0) ng/mL ALT 79 H (4-49) U/L C-Reactive Protein 1.8 H (<1.0) mg/dL Total Protein 5.9 L (6.3-8.2) g/dL Microbiology - Last 24 Hours (Table) 01/20/21 16:24 Blood Culture - Preliminary Blood No Growth after 24 hours Assessment and Plan Assessment: Acute hypoxemic respiratory failure ARDS secondary to Covid 19 -Admit inpatient, telemetry -Oxygen when necessary -Inhalers when necessary -Dexamethasone -Vitamin C, D, zinc, famotidine -Pulmonary consult -Daily inflammatory labs Hypertension Hyperlipidemia History of pulmonary embolism -Home medications reviewed and reconciled Patient is a full code DVT prophylaxis is covered with patient's home Eliquis is next of kin
[2021-01-22] MEDS: LISINOPRIL-HCTZ 20-12.5 MG 1 EACH TAB PO SCH (14:08)
[2021-01-22] MEDS: ALPRAZolam 0.25 MG TAB PO PRN ×2 (17:09→23:17)
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
[2021-01-23] MEDS: ACETAMINOPHEN TAB 325 MG TAB PO PRN (06:05)
--- NOTE | 2021-01-23 07:39 | XR ---
EXAMINATION TYPE: XR chest 1V portable DATE OF EXAM: 01/23/2021 COMPARISON: Chest x-ray 01/22/2021 HISTORY: Covid 19 pneumonia TECHNIQUE: Single frontal view of the chest is obtained. FINDINGS: Bilateral interstitial densities, groundglass opacity is present. Cardiac mediastinal silh ouette is stable. No evident pneumothorax or pleural effusion. There are overlying leads. IMPRESSION: Findings consistent with patient's history Covid pneumonia
[2021-01-23] MEDS: ALBUTEROL HFA INHALER INHALATION PRN (07:57)
[2021-01-23] MEDS: APIXABAN 5 MG TAB PO SCH (08:13)
[2021-01-23] MEDS: ATORVASTATIN 20 MG TAB PO SCH (08:13)
[2021-01-23] MEDS: CHOLECALCIFEROL 25 MCG (1000 IU) TABLET PO SCH (08:13)
[2021-01-23] MEDS: LISINOPRIL-HCTZ 20-12.5 MG 1 EACH TAB PO SCH (08:13)
[2021-01-23] MEDS: dexAMETHasone 2 MG TAB PO SCH (08:13)
[2021-01-23] MEDS: FAMOTIDINE 20 MG TAB PO SCH (08:16)
[2021-01-23 08:26] LABS: ALT 82 U/L (4-49); AST 37 U/L (17-59); African American GFR (CKD) >90 (>60 ml/min/1.73 sqM); Albumin 3.7 g/dL (3.5-5.0); Albumin/Globulin Ratio 1.5; Alkaline Phosphatase 57 U/L (38-126); Anion Gap 9 mmol/L; Blood Urea Nitrogen 19 mg/dL (9-20); Calcium 8.9 mg/dL (8.4-10.2); Carbon Dioxide 25 mmol/L (22-30); Chloride 97 mmol/L (98-107); Globulin 2.5 g/dL; Glucose 87 mg/dL (74-99); LDH 645 U/L (313-618); Non-African American GFR(CKD) >90 (>60 ml/min/1.73 sqM); Potassium 4.2 mmol/L (3.5-5.1); Sodium 131 mmol/L (137-145); Total Bilirubin 0.8 mg/dL (0.2-1.3); Total Protein 6.2 g/dL (6.3-8.2)
[2021-01-23 08:49] LABS: C Reactive Protein 12.5 mg/dL (<1.0)
[2021-01-23 10:14] VITALS: BP 123/64; PULSE 90; RESP 16; TEMP 98.3
[2021-01-23 12:16] LABS: HCT 45.4 % (39.6-50.0); HGB 15.4 g/dL (13.0-17.0); MCH 31.2 pg (27.0-32.0); MCHC 33.9 g/dL (32.0-37.0); MCV 91.9 fL (80.0-97.0); Mean Platelet Volume 9.7 fL (9.5-12.2); Platelet Count 357 X 10*3/uL (140-440); RBC 4.94 X 10*6/uL (4.40-5.60); RDW 13.2 % (11.5-14.5); WBC 25.25 X 10*3/uL (4.50-10.00)
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
[2021-01-23 13:46] LABS: Basophils # (M) 0.25 X 10*3/uL (0.00-0.10); Eosinophils # (M) 0 X 10*3/uL (0.04-0.35); Lymphocytes # (M) 1.26 X 10*3/uL (0.90-5.00); Metamyelocytes % 2 % (0-0); Monocytes # (M) 0.25 X 10*3/uL (0.20-1.00); Neutrophils # (M) 22.98 X 10*3/uL (2.00-8.90); Neutrophils % (M) 91 %
--- NOTE | 2021-01-23 14:23 | P.DS ---
Providers Date of admission: 01/20/21 15:00 Expected date of discharge: 01/23/21 Attending physician: Sunshine Maxwell MD Consults: 01/20/21 15:31 Consult Physician Routine Consulting Provider: Peter Bhagat Consult Reason/Comments: COVID PNA Do you want consulting provider notified?: Yes Primary care physician: [facility] Hospital Course: Acute hypoxemic respiratory failure ARDS secondary to Covid 19 Admitted to inpatient, telemetry for ARDS and RF secondary to pneumonia. Patient required 3-4L of oxygen throughout hospitalization and fortunately did not clinically worsen. Inflammatory markers were largely stable with the exception of CRP which did trend up slightly. Patient was treated with dexamethasone, Vit C/D, Zn, and famotidine. Pulmonary consultation facilitated management. Pt was outside window for remdesivir, did not qualify for tocilizumab. Pt was discharged home on home oxygen with plan to f/u with PCP and pulmonary medicine. Hypertension Hyperlipidemia History of pulmonary embolism -No changes on discharge. I spent 35 minutes coordinating this complex discharge. Assessment: Gen: awake, alert HEENT: normocephalic, atraumatic, good hearing acuity, moist mucous membranes Resp: good air exchange, breathing comfortably with no accessory muscle use, diffuse coarse breath sounds, crackles CVS: good distal perfusion x 4, regular rate and rhythm without murmurs GI: soft, NTTP, ND : no SPT, no CVAT, vu catheter not present MSK: no pitting edema, no clubbing Neuro: non-focal, moving all extremities Psych: cooperative, euthymic mood Patient Condition at Discharge: Good Plan - Discharge Summary Discharge Rx Participant: No New Discharge Prescriptions: New Famotidine [Pepcid] 20 mg PO BID #60 tab Ascorbic Acid [Vitamin C] 1,000 mg PO DAILY #30 tablet Cholecalciferol [Vitamin D3 (25 Mcg = 1000 Iu)] 50 mcg PO DAILY #30 tablet Continue Apixaban [Eliquis] 5 mg PO BID #60 tablet Rosuvastatin [Crestor] 10 mg PO DAILY Lisinopril-Hctz 20-12.5 mg [Zestoretic 20-12.5] 1 tab PO DAILY Albuterol Nebulized [Ventolin Nebulized] 2.5 mg INHALATION RT-Q4H PRN PRN Reason: difficulty in breathing Dexamethasone [Decadron] 6 mg PO DAILY #10 tab Discharge Medication List Apixaban [Eliquis] 5 mg PO BID #60 tablet 08/24/18 [Rx] Albuterol Nebulized [Ventolin Nebulized] 2.5 mg INHALATION RT-Q4H PRN 01/20/21 [History] Lisinopril-Hctz 20-12.5 mg [Zestoretic 20-12.5] 1 tab PO DAILY 01/20/21 [History] Rosuvastatin [Crestor] 10 mg PO DAILY 01/20/21 [History] Ascorbic Acid [Vitamin C] 1,000 mg PO DAILY #30 tablet 01/23/21 [Rx] Cholecalciferol [Vitamin D3 (25 Mcg = 1000 Iu)] 50 mcg PO DAILY #30 tablet 01/23/21 [Rx] Dexamethasone [Decadron] 6 mg PO DAILY #10 tab 01/23/21 [Rx] Famotidine [Pepcid] 20 mg PO BID #60 tab 01/23/21 [Rx] Follow up Appointment(s)/Referral(s): [facility] [NON-STAFF] - As Needed (oxygen ) [facility] MD [Primary Care Provider] - 1-2 days Peter Bhagat MD [STAFF PHYSICIAN] - 4 Weeks Patient Instructions/Handouts: Coronavirus Disease 2019 (COVID-19)
== END 2021-01-23 15:14 | disposition home or self-care (01) | DRG 177 ==
LOC: EC 12:19 → 4SSUR 15:00
PROVIDERS: ADMIT Internal Medicine; ATTEND Internal Medicine
DX: U07.1 COVID-19 (principal); J12.82 Pneumonia due to coronavirus disease 2019; J80 Acute respiratory distress syndrome; E87.1 Hypo-osmolality and hyponatremia; E78.5 Hyperlipidemia, unspecified; I10 Essential (primary) hypertension; J43.2 Centrilobular emphysema; H93.19 Tinnitus, unspecified ear; Z79.01 Long term (current) use of anticoagulants; Z79.899 Other long term (current) drug therapy; Z82.3 Family history of stroke; Z82.49 Family history of ischemic heart disease and other diseases of the circulatory system; Z82.5 Family history of asthma and other chronic lower respiratory diseases; Z86.711 Personal history of pulmonary embolism; Z87.891 Personal history of nicotine dependence; Z87.828 Personal history of other (healed) physical injury and trauma; Z91.030 Bee allergy status; Z90.89 Acquired absence of other organs
CPT/HCPCS: 36415; 71045; 71275; 80053; 82550; 82728; 83615; 83880; 84145; 84484; 85025; 85379; 85384; 85610; 86140; 87040; 93005; 94640; 94760; 96360; 99285

== ENCOUNTER → 2021-03-01 | Outpatient (CLI) | payer OTHER ==
--- NOTE | 2021-03-02 07:45 | ECHOF ---
Referral Reason: MEASUREMENTS -------- HEIGHT: 180.3 cm WEIGHT: 104.3 kg BP: RVIDd: 3.0 cm (< 3.3) IVSd: 1.5 cm (0.6 - 1.1) LVIDd: 3.8 cm (3.9 - 5.3) LVPWd: 1.5 cm (0.6 - 1.1) IVSs: 1.8 cm LVIDs: 2.6 cm LVPWs: 1.8 cm LAESV Index (A-L): 9.19 ml/m Ao Diam: 3.3 cm (2.0 - 3.7) AV Cusp: 1.8 cm (1.5 - 2.6) LA Diam: 2.6 cm (2.7 - 3.8) MV EXCURSION: 17.007 mm (> 18.000) MV EF SLOPE: 78 mm/s (70 - 150) EPSS: 0.4 cm MV E Ok: 0.57 m/s MV DecT: 133 ms MV A Ok: 0.87 m/s MV E/A Ratio: 0.66 RAP: 5.00 mmHg RVSP: 11.07 mmHg FINDINGS -------- This was a technically good study. The left ventricular size is normal. There is moderate concentric left ventricular hypertrophy. O verall left ventricular systolic function is normal with, an EF between 60 - 65 %. The diastolic fi lling pattern is normal for the age of the patient 10.56. The right ventricle is normal in size. The left atrial size is normal. Normal LA size by volume 22+/-6 ml/m2. The right atrial size is normal. The aortic valve is trileaflet and appears structurally normal. The mitral valve is normal. There is trace mitral regurgitation. The tricuspid valve appears structurally normal. Trace tricuspid regurgitation present. Right mina tricular systolic pressure is normal at < 35 mmHg. There is no pulmonic regurgitation present. The aortic root size is normal. Normal inferior vena cava with normal inspiratory collapse consistent with estimated right atrial pre ssure of 5 mmHg. There is no pericardial effusion. CONCLUSIONS -------- 1. The left ventricular size is normal. 2. There is moderate concentric left ventricular hypertrophy. 3. Overall left ventricular systolic function is normal with, an EF between 60 - 65 %. 4. The diastolic filling pattern is normal for the age of the patient 10.56 5. There is trace mitral regurgitation. 6. Trace tricuspid regurgitation present. 7. There is no pericardial effusion. BEAUTY OPERATOR APPRENTICE: Thalia Casper RDCS
== END | disposition home or self-care (01) ==
LOC: RADECHMAIN 13:40
PROVIDERS: ATTEND Family Medicine
DX: I08.1 Rheumatic disorders of both mitral and tricuspid valves (principal)
CPT/HCPCS: 93306

== ENCOUNTER → 2021-09-22 | Outpatient (CLI) | payer OTHER ==
[2021-09-22 18:13] LABS: Hepatitis A Antibody IgM Nonreactive (Nonreactive)
[2021-09-22 20:03] LABS: Hepatitis B Core IgM Nonreactive (Nonreactive); Hepatitis C IgG Antibody Nonreactive (Nonreactive)
[2021-09-22 21:11] LABS: ALT 41 U/L (10-49); AST 24 U/L (14-35); Albumin 4.5 g/dL (3.8-4.9); Albumin/Globulin Ratio 1.85 (1.60-3.17); Alkaline Phosphatase 57 U/L (41-126); Bilirubin, Conjugated <0.20 mg/dL (0.20-0.40); GGT 37 U/L (0-73); Globulin 2.4 g/dL (1.6-3.3)
[2021-09-22 21:31] LABS: Hepatitis B Surface Antigen Nonreactive (Nonreactive)
== END | disposition home or self-care (01) ==
LOC: LABWHC1 10:50
PROVIDERS: ATTEND Family Medicine
DX: R79.0 Abnormal level of blood mineral (principal); R74.01 Elevation of levels of liver transaminase levels
CPT/HCPCS: 36415; 80074; 80076; 82977

== ENCOUNTER → 2022-10-17 | Outpatient (CLI) | payer BC ==
--- NOTE | 2022-10-18 12:25 | MR ---
EXAMINATION TYPE: MR knee RT wo con DATE OF EXAM: 10/17/2022 COMPARISON: Outside right knee x-ray October 04, 2022 HISTORY: Right knee pain and swelling. TECHNIQUE: Multiplanar, multisequence images of the knee is performed without IV contrast. FINDINGS: MEDIAL MENISCUS: Medial extrusion of medial meniscus. There is triangular shaped increased signal pos terior horn extending to inferior articular surface with some horizontal increased signal anterior ho rn. LATERAL MENISCUS: Anterior and posterior horns are intact without tear. CRUCIATE LIGAMENTS: The posterior cruciate ligament is intact and unremarkable. Anterior cruciate lig ament shows fanning of fibers with increased signal. COLLATERAL LIGAMENTS: The medial collateral ligament and lateral collateral ligament complex are inta ct and unremarkable. EXTENSOR MECHANISM: Visualized quadriceps and patellar tendons are intact. EFFUSION: Small size suprapatellar joint effusion. POPLITEAL CYST: Tiny popliteal/pratt cyst. TRICOMPARTMENT SPACES: Mild to moderate tricompartment joint space loss and spurring. CARTILAGE: Some cartilaginous loss medial tibiofemoral compartment. BONE MARROW SIGNAL: No focal abnormal marrow signal is appreciated. OTHER: No additional significant abnormality is appreciated. IMPRESSION: 1. Tricompartment degenerative changes that are fairly moderate in appearance medial tibiofemoral com partment as detailed above. 2. Full-thickness tear posterior horn medial meniscus extending into the central body. Intrasubstance tear anterior horn medial meniscus. 3. Myxoid degeneration/partial tearing anterior cruciate ligament. 4. Small sized suprapatellar joint effusion. 5. Tiny popliteal cyst.
== END | disposition home or self-care (01) ==
LOC: RADMRIMAIN 20:15
PROVIDERS: ATTEND Orthopaedic Surgery
DX: S83.241A Other tear of medial meniscus, current injury, right knee, initial encounter (principal); S83.511A Sprain of anterior cruciate ligament of right knee, initial encounter; M17.11 Unilateral primary osteoarthritis, right knee; M25.461 Effusion, right knee; M71.21 Synovial cyst of popliteal space [Baker], right knee; X58.XXXA Exposure to other specified factors, initial encounter

== ENCOUNTER 2022-11-16 10:35 | Day surgery (SDC) | payer BC ==
[2022-11-11 14:59] VITALS: BMI 32.1
--- NOTE | 2022-11-15 12:54 | HP ---
HISTORY AND PHYSICAL DATE OF SURGERY: 11/16/2022. HISTORY OF PRESENT ILLNESS: Fazal Palacios is a 66-year-old gentleman, seen with progressive right knee pain. Options were discussed. He elected to proceed with right knee arthroscopy. Consent regarding procedure was obtained. PAST MEDICAL HISTORY: Noncontributory. PAST SURGICAL HISTORY: Noncontributory. DAILY MEDICATIONS: 1. Eliquis. 2. Tylenol. ALLERGIES: None. SOCIAL HISTORY: He denies tobacco use. PHYSICAL EVALUATION OF RIGHT KNEE: His range of motion is 0 to 125 degrees. Mild effusion. Tenderness, medial joint line. Positive medial Sean's. Ligaments are stable. Hip rotation is without pain. Distal neurovascular exam is intact. IMAGING STUDIES: Radiographs of the right knee revealed moderate osteoarthritic changes. Right knee MRI revealed medial meniscal tear, partial ACL tear, and effusion. IMPRESSION: Internal derangement of right knee with medial meniscal tear and partial anterior cruciate ligament tear. PLAN: Right knee arthroscopy with partial medial meniscectomy and debridement. MMODL / IJN: [id number] /
[~2022-11-16 10:35] MED LIST: DEXAMETHASONE SOD PHOSPHATE 4 MG/ML 1 ML VIAL IV ONE; HYDROmorphone 0.5 MG/0.5 ML SYRINGE IVP PRN; LACTATED RINGERS 1,000 ML IV SCH; ONDANSETRON 4 MG/2 ML VIAL IVP ONE
[2022-11-16] MEDS ORDERED: MIDAZOLAM 2 MG/2 ML VIAL IVP ONE (11:33)
[2022-11-16] MEDS ORDERED: ePHEDrine 50 MG/ML 1 ML VIAL ONE (11:58)
[2022-11-16] MEDS ORDERED: MIDAZOLAM 2 MG/2 ML VIAL ONE (11:58)
[2022-11-16] MEDS ORDERED: LIDOCAINE 2% INJ 20 MG/ML (2 ML VIAL) ONE (11:58)
[2022-11-16] MEDS ORDERED: fentaNYL (PF) 50 MCG/ML 2 ML AMP ONE (11:58)
[2022-11-16] MEDS ORDERED: WATER FOR INJECTION, STERILE 10 ML VIAL IV ONE (11:58)
[2022-11-16] MEDS ORDERED: PROPOFOL 10 MG/ML 20 ML VIAL IV ONE (11:58)
[2022-11-16] MEDS ORDERED: SUCCINYLCHOLINE CHLORIDE 200 MG/10 ML VIAL IV ONE (11:58)
[2022-11-16] MEDS ORDERED: BUPIVACAINE (PF) 0.25% 30 ML VIAL INTRAARTIC ONE ×2 (12:28→12:42)
--- NOTE | 2022-11-16 13:01 | P.OP ---
Date of Procedure: 11/16/22 Preoperative Diagnosis: Internal derangement right knee Postoperative Diagnosis: 1. Tear medial and lateral meniscus right knee 2. Grade 4 chondromalacia femoral sulcus right knee 3. Reactive synovitis medial, lateral and suprapatellar compartments right knee 4. Grade 2/3 chondromalacia medial femoral condyle right knee Procedure(s) Performed: 1. Arthroscopic partial medial and lateral meniscectomy right knee 2. Arthroscopic microfracture femoral sulcus right knee 3. Arthroscopic partial synovectomy medial, lateral and suprapatellar compartments right knee 4. Arthroscopic chondroplasty medial femoral condyle right knee Anesthesia: MARIO, local Surgeon: Elias Valdes Estimated Blood Loss (ml): 5 Pathology: none sent Condition: stable Disposition: PACU Indications for Procedure: 66-year-old gentleman seen with progressive right knee pain. After treatment options were discussed, he elected to proceed with arthroscopy. Operative Findings: See description of procedure Description of Procedure: Patient was taken to the operative suite. Patient underwent a general anesthetic by the department of anesthesia. Patient was given preoperative antibiotics. The right lower extremity was placed in a well-padded arthroscopic leg bryant. The right leg was prepped and draped in the normal sterile orthopedic fashion. A lateral parapatellar and suprapatellar incision was made. Trochars were inserted. Arthroscopy was initiated. Suprapatellar pouch revealed diffuse thick reactive synovitis. The patellofemoral joint appeared to articulate congruently. There was grade 2 chondromalacia of the patella with no osteochondral tears. There was an area of grade 4 chondromalacia involving the femoral sulcus with exposed bone. The scope was guided into the medial gutter. No loose bodies or plica were identified. The scope was then guided into the medial compartment. A medial parapatellar incision was made. Trocar inserted followed by probe. There was a complex tear involving the posterior horn and midbody area of the medial meniscus. There were grade 2/3 chondromalacia changes of medial femoral condyle with some osteochondral flap tears present. There was thick reactive synovitis anteriorly. I performed a partial medial meniscectomy getting down to stable meniscal tissue. I performed a chondroplasty of the medial femoral condyle getting down to stable osteochondral tissue. I performed a partial synovectomy decompressing the reactive synovitis. The residual meniscus was probed and was found to be stable. The residual osteochondral surface of the femoral condyle was stable. There was good decompression of the synovitis. Scope and probe were then guided into the intercondylar notch. Cruciates were identified, probed and found to be stable. The scope and probe were then guided into lateral compartment. There was a radial tear mid body lateral meniscus and a radial tear posterior horn lateral meniscus. There were mild grade 1 chondromalacia changes of femoral condyle and grade 2 chondromalacia changes of the tibial plateau. There was some thick reactive synovitis anteriorly. I performed a partial lateral meniscectomy getting down to stable meniscal tissue. I performed a partial synovectomy decompressing reactive synovitis. The residual meniscus and stable. There was good decompression of the synovitis. The scope was in guided back into the suprapatellar compartment. I introduced a microfracture awl and performed a microfracture to the area of exposed bone medial femoral condyle penetrating the bone with resultant bleeding at the microfracture site. The peripheral osteochondral tissue was probed and was found be stable. I now introduced a motorized shaver and debrided out some piecemeal fragments of meniscus I encountered. I performed a partial synovectomy. Shaver was now removed. There was good decompression of the synovitis. I took one more look on the entire knee, no residual debris. Instruments were now removed from the joint. The j oint was infiltrated with .25% Marcaine. Steri-Strips were applied to the portal sites. Sterile dressings were applied. The patient was placed into a JOCELYNN hose. No tourniquet was utilized. The patient was awakened, transferred to a bed and taken to recovery stable satisfactory condition.
[2022-11-16 13:11] VITALS: TEMP 97.6
[2022-11-16 13:53] VITALS: PULSE 65
[2022-11-16] MEDS ORDERED: LACTATED RINGERS 1,000 ML IV ONE (13:53)
[2022-11-16 14:02] VITALS: RESP 18
[2022-11-16 14:35] VITALS: BP 116/68
== END 2022-11-16 14:59 | disposition home or self-care (01) ==
LOC: OR 10:35
PROVIDERS: ATTEND Orthopaedic Surgery
DX: S83.231A Complex tear of medial meniscus, current injury, right knee, initial encounter (principal); S83.281A Other tear of lateral meniscus, current injury, right knee, initial encounter; M94.211 Chondromalacia, right shoulder; M65.861 Other synovitis and tenosynovitis, right lower leg; M23.91 Unspecified internal derangement of right knee; M17.11 Unilateral primary osteoarthritis, right knee; X58.XXXA Exposure to other specified factors, initial encounter; I10 Essential (primary) hypertension; E78.5 Hyperlipidemia, unspecified; Z87.820 Personal history of traumatic brain injury; Z86.711 Personal history of pulmonary embolism; Z79.1 Long term (current) use of non-steroidal anti-inflammatories (NSAID); Z79.01 Long term (current) use of anticoagulants; Z79.899 Other long term (current) drug therapy; Z88.0 Allergy status to penicillin
CPT/HCPCS: 29879; 29880; J2250; J0330; J1100; J0690; J2405; J3010; J2704; J1170; J2001

== ENCOUNTER → 2023-05-30 | Outpatient (CLI) | payer MEDICARE ==
--- NOTE | 2023-05-30 08:40 | US ---
EXAMINATION TYPE: US carotid duplex BILAT DATE OF EXAM: 05/30/2023 COMPARISON: NONE CLINICAL INDICATION: Male, 67 years old with history of I65.29 CAROTID STENOSIS; TECHNIQUE: Carotid duplex ultrasound examination. Indirect Doppler criteria was utilized. 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 Atheromatous plaquing bilaterally without significant flow-limiting stenosis. Criteria for Assigning % of Stenosis / Diameter reduction (Estimation based on the indirect measurements of the internal carotid artery velocities (ICA PSV). 1. Normal (no stenosis)=ICA PSV < 125 cm/s: ratio < 2.0: ICA EDV<40 cm/s. 2. Less than 50% stenosis=ICA PSV < 125 cm/s: ratio < 2.0: ICA EDV<40 cm/s. 3. 50 to 69% stenosis=ICA PSV of 125 to 230 cm/s: ration 2.0 ? 4.0: ICA EDV 40-100 cm/s. 4. Greater than 70% stenosis to near occlusion= ICA PSV > 230 cm/s: ratio > 4.0: ICA EDV > 100 cm/s. 5. Near occlusion= ICA PSV velocities may be low or undetectable: variable ratio and ICA EDV. 6. Total occlusion=unable to detect flow.
== END | disposition home or self-care (01) ==
LOC: RADUSWWP 08:10
PROVIDERS: ATTEND Family Medicine
DX: I65.23 Occlusion and stenosis of bilateral carotid arteries (principal)
CPT/HCPCS: 93880

== ENCOUNTER → 2024-02-15 | Outpatient (CLI) | payer MEDICARE ==
--- NOTE | 2024-02-15 11:02 | CTL ---
EXAMINATION TYPE: CT Low Dose Lung DATE OF EXAM ORDERED: 02/15/2024 History: Lung cancer screening. CT DLP: [address] CTDI: 2.41 mGy Automated exposure control for dose reduction was used. Comparison: CTA chest dated 01/20/2021 TECHNIQUE: Low dose computed tomography scan was performed through the chest at 1 mm thick sections a nd reconstructed images in multiple planes at 1 mm and [address] DIAGNOSTIC QUALITY: Satisfactory FINDINGS: There are single 2 to 3 mm nodules in both lungs. There is no suspicious lung mass or nodule. There is no airspace consolidation normal interstitial density. The great vessels chest are normal and is no mediastinal, hilar or axillary adenopathy. Limited scanning through the upper abdomen reveals no gross abnormality. No focal osseous lesions are seen. IMPRESSION: 1. Lung RADS category 2 benign. Continue routine screening yearly intervals. 2. No acute cardiopulmonary disease [facility], Workstation: [facility], 02/15/2024 11:00 AM
== END | disposition home or self-care (01) ==
LOC: RADCTMAIN 09:51
PROVIDERS: ATTEND Family Medicine
CPT/HCPCS: 71271

== ENCOUNTER → 2024-08-20 | Outpatient (CLI) | payer MEDICARE ==
--- NOTE | 2024-08-20 15:03 | MR ---
EXAMINATION TYPE: MR shoulder RT wo con DATE OF EXAM: 08/20/2024 12:36 PM COMPARISON: Outside right shoulder x-rays August 14, 2024 CLINICAL INDICATION: Male, 68 years old with history of M25.511 PAIN IN RIGHT SHOULDER, Right shoulde r pain, S/P fall 3 weeks ago. IV Contrast: cc (None if empty) TECHNIQUE: Multiplanar, multisequence imaging of the right shoulder is performed without contrast. FINDINGS: Rotator Cuff: Mild increased signal in the infraspinatus tendon. More prominent increased signal in the supraspinatus tendon. Significant tearing of the distal supras pinatus tendon. Rotator cuff muscle bulk is preserved. Acromioclavicular Joint: Moderate narrowing and spurring along with moderate capsular hypertrophy. Zamudio bchondral cystic change at this level is present. Glenohumeral Joint: Small to moderate size joint effusion. Narrowing is seen. No significant spurring . Labrum: Increased signal superior labrum consistent with tear. Biceps Tendon: The long head of biceps is difficult to identify in normal location within bicipital g roove. Intracapsular portion not well seen. Bone marrow signal: Large thin-walled cystic lesion anterior humeral head with some adjacent osseous edema. Other: No additional significant abnormality is appreciated. IMPRESSION: 1. Superior labral tear. There is probable tear/dislocation of long head of biceps tendon which is no t well visualized. 2. Significant tearing of the subscapularis tendon. 3. Mild tendinosis of the infraspinatus tendon. More prominent tendinosis of the supraspinatus tendon . 4. Moderate degenerative changes are present as detailed above. [facility], , 08/20/2024 3:01 PM
== END | disposition home or self-care (01) ==
LOC: RADMRIMAIN 11:58
PROVIDERS: ATTEND Orthopaedic Surgery
DX: S43.431A Superior glenoid labrum lesion of right shoulder, initial encounter (principal); S46.011A Strain of muscle(s) and tendon(s) of the rotator cuff of right shoulder, initial encounter; M67.813 Other specified disorders of tendon, right shoulder; M19.011 Primary osteoarthritis, right shoulder

== ENCOUNTER 2024-09-19 05:44 | Day surgery (SDC) | payer MEDICARE ==
--- NOTE | 2024-09-18 21:58 | HP ---
HISTORY AND PHYSICAL DATE OF SURGERY: 09/19/2024. HISTORY OF PRESENT ILLNESS: Fazal Palacios is a 68-year-old gentleman seen with progressive right shoulder pain. After having treatment options discussed, he elected to proceed with right shoulder arthroscopy. Consent was obtained. Medical clearance was provided by Dr. Martinez. PAST MEDICAL HISTORY: Cardiovascular disease, hypertension, hyperlipidemia. PAST SURGICAL HISTORY: Noncontributory. DAILY MEDICATIONS: 1. Rosuvastatin. 2. Lisinopril. 3. Eliquis. 4. Amlodipine. ALLERGIES: None. SOCIAL HISTORY: Denies tobacco use. PHYSICAL EVALUATION OF THE RIGHT SHOULDER: Flexion is 100 degrees, abduction is 70 degrees. External rotation is 30 degrees with pain and significant weakness, tenderness along the anterolateral acromion, bicipital groove area, and acromioclavicular joint. Impingement is positive at 70 degrees. Cross body adduction sign is positive. Drop-arm sign is positive. Distal neurovascular exam is intact. IMAGING STUDIES: Right shoulder radiographs revealed a type 2 acromion. Cystic changes of the tuberosity and acromioclavicular joint osteoarthritis. MRI of right shoulder revealed rotator cuff tear, labral tear, biceps tear. IMPRESSION: 1. Right shoulder impingement with rotator cuff tendon tear. 2. Right shoulder labral tear. 3. Right shoulder acromioclavicular joint osteoarthritis. PLAN: Right shoulder arthroscopy with subacromial decompression, rotator cuff repair, Blu procedure and debridement of labral tear. MMODL / IJN: [id number] /
[2024-09-19] MEDS: IV FLUID CONTINUATION 1,000 ML IV ONE (06:13)
[2024-09-19] MEDS ORDERED: HYDROmorphone 0.5 MG/0.5 ML SYRINGE IVP PRN (06:15)
[2024-09-19] MEDS ORDERED: fentaNYL (PF) 50 MCG/ML 2 ML AMP IVP PRN (06:15)
[2024-09-19] MEDS ORDERED: LIDOCAINE 1% (10MG/ML) FOR IV START INTRADERMA PRN (06:15)
[2024-09-19] MEDS: LACTATED RINGERS 1,000 ML IV SCH (06:49)
[2024-09-19] MEDS: ONDANSETRON 4 MG/2 ML VIAL IVP ONE (06:50)
[2024-09-19] MEDS: DEXAMETHASONE SOD PHOSPHATE 4 MG/ML 1 ML VIAL IV ONE (06:50)
[2024-09-19] MEDS: MIDAZOLAM 2 MG/2 ML VIAL IV PRN (06:56)
[2024-09-19 06:59] LABS: HCT 42.7 % (39.6-50.0); MCH 30.9 pg (27.0-32.0); MCHC 35.1 g/dL (32.0-37.0); Mean Platelet Volume 9.8 fL (9.5-12.2); Platelet Count 212 10*3/uL (140-440); RBC 4.85 10*6/uL (4.40-5.60); RDW 13.3 % (11.5-14.5); WBC 9.35 10*3/uL (4.50-10.00)
[2024-09-19] MEDS ORDERED: ePHEDrine 50 MG/ML 1 ML VIAL ONE (07:20)
[2024-09-19] MEDS ORDERED: fentaNYL (PF) 50 MCG/ML 2 ML AMP ONE (07:20)
[2024-09-19] MEDS ORDERED: LIDOCAINE 1% INJ 10MG/ML (20 ML MDV) ONE (07:20)
[2024-09-19] MEDS ORDERED: ROPIVACAINE 5 MG/ML 30 ML VIAL ONE (07:20)
[2024-09-19] MEDS ORDERED: KETOROLAC 15 MG/ML 1 ML VIAL ONE (07:20)
[2024-09-19] MEDS ORDERED: PROPOFOL 10 MG/ML 20 ML VIAL IV ONE (07:20)
[2024-09-19] MEDS ORDERED: DEXAMETHASONE SOD PHOSPHATE 4 MG/ML 1 ML VIAL ONE (07:20)
[2024-09-19] MEDS ORDERED: SUCCINYLCHOLINE CHLORIDE 200 MG/10 ML VIAL IV ONE (07:20)
[2024-09-19] MEDS: ceFAZolin 2 GM in DEXTROSE 5% IN WATER 50 ML IVPB PRN (07:24)
[2024-09-19 08:48] VITALS: TEMP 96.8
--- NOTE | 2024-09-19 08:50 | P.OP ---
Date of Procedure: 09/19/24 Preoperative Diagnosis: Right shoulder impingement Postoperative Diagnosis: 1. Right shoulder rotator cuff tear 2. Right shoulder impingement 3. Right shoulder acromioclavicular joint osteoarthritis 4. Right shoulder superficial labral tear Procedure(s) Performed: 1. Right shoulder arthroscopic rotator cuff repair 2. Right shoulder arthroscopic subacromial decompression 3. Right shoulder arthroscopic Blu procedure 4. 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 After having adore atment options discussed, he elected to proceed with arthroscopy. Operative Findings: See description of procedure Description of Procedure: Patient underwent an interscalene block by department of anesthesia. The patient was then taken to the operative suite. The patient underwent a general anesthetic by the department of anesthesia. The patient was placed into a lateral position and secured. There was appropriate padding of the bony prominence. Right shoulder was then prepped and draped in normal sterile orthopedic fashion. We placed the extremity in 10 pounds of longitudinal traction. A posterior incision was now made for a posterior working portal site. The trocar and cannula were inserted into the glenohumeral joint. Arthroscopy was initiated. Spinal needle was now inserted anteriorly, to ascertain the anterior working portal site. An incision was now made in that area, a trocar was inserted followed by a probe. There was superficial tearing of the superior and anterior labrum. The biceps tendon was absent consistent with a chronic subacute tear. There were grade I/II chondromalacia changes along the central area of the glenoid fossa without significant tearing. I introduced a motorized shaver and I debrided out the superficial tearing of the superior labrum and the anterior labrum. The residual labral tissue was found to be stable. Instruments were now removed from the glenohumeral joint. Utilizing the posterior working portal site, the trocar and cannula were inserted into the subacromial space. Arthroscopy initiated. I made an incision 2 fingerbreadths lateral to the acromion. I introduced my trocar followed by my ArthroCare ablator. I now began ablating thick subacromial bursal tissue, which exposed the undersurface of the anterior acromion. There was diminished subacromial space. There was a very prominent anterior acromion. A motorized bur was introduced and a subacromial decompression was performed. I also excised some osteophytes off the inferior aspect of the distal clavicle. The AC joint was visualized and noted to be fairly arthritic. The motorized bur was introduced in the anterior portal site and a Blu procedure was performed without difficulty, decompressing the AC joint nicely. I turned my attention to the rotator cuff. There was significant partial tearing of the posterior aspect distal supraspinatus. Upon probing the area there was a full-thickness perforation present. I debrided the margins getting down to stable tendon tissue. The defect/tear measured about 1.5 cm and was freely mobile over the footprint. I abraded the footprint with a motorized bur. With the assistance of Guillermo MARTINEZ I passed 2 Ubretid mattress sutures through good bites of rotator cuff tendon. I partial in the footprint area for insertion of an anchor. All 4 limbs of suture were now passed through the eyelet of an Arthrex 4.75 swivel lock anchor. I placed the eyelet into the prepunch to hold. I held eyelit in position while Guillermo MARTINEZ tensioned all 4 suture limbs and deployed the anchor with good fixation noted. All residual suture limbs were now clipped. We had good compression of the tendon along the entire footprint. Instruments now removed from the portal sites. All portal sites were approximated with nylon suture. Sterile dressings were applied followed by a shoulder sling. Sunny MARTINEZ assisted in this complex case. The patient was awakened, transferred to a bed, and taken to recovery in stable condition.
[2024-09-19 09:45] VITALS: BP 117/75; PULSE 74; RESP 18
--- NOTE | 2024-09-20 07:20 | P.ANPRN ---
Procedure Note - Anesthesia - Nerve Block Performed Right Interscalene Single Time Out Performed: Yes Date of Procedure: 09/19/24 Procedure Start Time: 06:56 Procedure Stop Time: 07:03 Location of Patient: PreOp Indication: Acute Post-Operative Pain, Requested by Surgeon Sedation Type: Sedate with meaningful contact maintained Preparation: Sterile Prep Position: Supine Needle Types: Pajunk Needle Gauge: 21 Ultrasound used to visualize needle placement: Yes Ultrasound used to observe medication spread: Yes Blood Aspirated: No Pain Paresthesia on Injection Noted: No Resistance on Injection: Normal Image Stored and Saved: Yes Events: Uneventful and Well Tolerated (Ropivacaine 0.5% 20 cc plus dexamethasone 4 mg)
== END 2024-09-19 10:20 | disposition home or self-care (01) ==
LOC: OR 05:44
PROVIDERS: ATTEND Orthopaedic Surgery
DX: S43.491A Other sprain of right shoulder joint, initial encounter (principal); M75.101 Unspecified rotator cuff tear or rupture of right shoulder, not specified as traumatic; M19.011 Primary osteoarthritis, right shoulder; I25.10 Atherosclerotic heart disease of native coronary artery without angina pectoris; I10 Essential (primary) hypertension; E78.5 Hyperlipidemia, unspecified; Z86.711 Personal history of pulmonary embolism; Z88.0 Allergy status to penicillin; Z79.899 Other long term (current) drug therapy; X58.XXXA Exposure to other specified factors, initial encounter
CPT/HCPCS: 29827; 29826; 29824; 64415; 85027; C1713 ×2; J2250; J0330; J1100; J0690; J2405; J2003; J3010; J2795; J1885; J2704